=== PATIENT | male | born 1970 | race Asian ===

== ENCOUNTER 2020-01-11 06:36 | Emergency (ER) | payer MEDICAID ==
[~2020-01-11] VITALS: Ht 172.7 cm; Wt 113.4 kg
[2020-01-11 06:43] VITALS: Ht 172.7 cm; Wt 113.4 kg
[2020-01-11 07:21] LABS: BASOPHIL % 0.4 % (0-2); PLATELET COUNT 199 x10^3mcL (130-400); RED CELL DISTRIBUTION WIDTH 12.8 % (11.5-14.5)
[2020-01-11 07:28] LABS: microscopic required? NO
[2020-01-11 07:37] LABS: CALCIUM 8.6 mg/dL (8.5-10.1); CARBON DIOXIDE 27.4 mmol/L (21-32); CHLORIDE SERUM 103 mmol/L (98-107); GFR1 > 60 mL/min; GLUCOSE SERUM 122 mg/dL (74-106); POTASSIUM SERUM 3.5 mmol/L (3.5-5.1); SODIUM SERUM 141 mmol/L (136-145)
[2020-01-11 07:40] LABS: urine erythrocyte NEGATIVE (NEGATIVE)
[2020-01-11 07:42] LABS: ALBUMIN 3.8 g/dL (3.4-5.0); ALKALINE PHOSPHATASE 53 U/L (46-116); ALT/SGPT 24 U/L (16-63); AST/SGOT 18 U/L (15-37); BILIRUBIN TOTAL 0.94 mg/dL (0.20-1.00); LIPASE 131 IU/L (73-393)
[2020-01-11 08:45] VITALS: BP 127/72
== END 2020-01-11 08:45 | disposition home or self-care (01) ==
LOC: ED 06:36
PROVIDERS: Emergency Medicine
DX: R19.7 Diarrhea, unspecified (principal); R10.814 Left lower quadrant abdominal tenderness; R35.0 Frequency of micturition; I10 Essential (primary) hypertension
CPT/HCPCS: J1885; J7030